=== PATIENT | female | born 1980 | race Caucasian/White ===

== ENCOUNTER 2020-12-04 17:31 | Emergency (ER) | payer OTHER, SELFPAY ==
--- NOTE | 2020-12-04 17:34 | ED.FEMALEGU ---
HPI - Female Genitourinary General Chief complaint: Urogenital-Female Stated complaint: poss UTI Time Seen by Provider: 12/04/20 17:35 Source: patient and RN notes reviewed History of Present Illness HPI Narrative: Patient is a 40-year-old female who presents the urgent care with complaints of a possible UTI. Patient's states that since Wednesday she has had dysuria, frequency, urgency and suprapubic pressure. Patient states she had a little bit of blood in the urine today. Denies of any fever, nausea, vomiting, abdominal pain. Denies of any history of urinary tract infections. Denies of any chance of , patient has an IUD. No other acute complaints. No acute distress noted. Patient has not taken anything [id number] for her symptoms. Patient aware of the plan of care. Some parts of this dictation were generated by voice recognition software and may contain typographical and/or grammatical inaccuracies. Related Data Home Medications Medication Instructions Recorded Confirmed bupropion HCl 300 mg PO DAILY 12/04/20 12/04/20 eluxadoline [Viberzi] 75 mg PO BID 12/04/20 12/04/20 hydroxyzine HCl 10 mg PO DAILY 12/04/20 12/04/20 naltrexone-bupropion [Contrave] 8 tablet PO DAILY 12/04/20 12/04/20 omeprazole 40 mg PO DAILY 12/04/20 12/04/20 pen needle, diabetic [BD 12/04/20 12/04/20 Ultra-Fine Short Pen Needle] Allergies Allergy/AdvReac Type Severity Reaction Status Date / Time No Known Drug Allergies Allergy Unknown Verified 11/23/14 12:38 Review of Systems Review of Systems: Narrative: CONSTITUTIONAL: Denies fever, chills, or sweats. EYES: Denies visual changes, redness, or discharge. ENT: Denies rhinorrhea, congestion, sore throat, or otalgia. CARDIOVASCULAR: Denies chest pain, palpitations, or edema. RESPIRATORY: Denies cough or dyspnea. GASTROINTESTINAL: Denies abdominal pain, nausea, vomiting, or diarrhea. GENITOURINARY: Reports of dysuria, frequency, urgency SKIN: Denies rash or itching. MUSCULOSKELETAL: Denies back pain, joint pain, or myalgia. NEUROLOGIC: Denies headache, numbness, or weakness. All other systems reviewed are negative, except as documented in HPI. PMFSH Social History Social History Gender identity (if verbalized by the patient): Female Comments At the time of my signature, I reviewed and agree with the nursing past medical, surgical, social, and family history. There is no relevant family history pertinent to the patient complaint. Exam Narrative: Exam Narrative: GENERAL: This is a well-nourished, well-developed patient, in no apparent distress. HEAD: normocephalic, atraumatic. EYES: PERRL. Sclera clear/white. Vision is grossly intact. EARS: External ears normal NOSE: External nose normal with no obvious nasal discharge, nares without redness, no rhinorrhea. THROAT: Mucous membranes moist NECK: Neck supple CARDIOVASCULAR: Regular rate and rhythm without murmurs, gallops, or rubs. RESPIRATORY: Clear to auscultation. Breath sounds equal bilaterally. No wheezes, rales, or rhonchi. GASTROINTESTINAL: Abdomen soft, mild suprapubic tenderness, nondistended. SKIN: warm, intact with no suspicious lesions or rash, good texture and turgor. NEURO: awake, alert, and oriented to person, place and time. There were no obvious focal neurologic abnormalities. EXTREMITIES: No clubbing, cyanosis, or edema. BACK: Negative bilateral CVA tenderness Course Vital Signs Vital signs: Vital Signs Temperature 98.4 F 12/04/20 17:37 Pulse Rate 84 12/04/20 17:37 Respiratory Rate 16 12/04/20 17:37 Blood Pressure 154/93 H 12/04/20 17:37 Pulse Oximetry 100 12/04/20 17:37 Temperature 98.4 F 12/04/20 17:48 Pulse Rate 84 12/04/20 17:48 Respiratory Rate 16 12/04/20 17:48 Blood Pressure 154/93 H 12/04/20 17:48 Pulse Oximetry 100 12/04/20 17:48 Reviewed-patient is informed that they may have pre-hypertension or hypertension based on a blood pressure reading in the dep
[2020-12-04 17:37] VITALS: BP 154/93; PULSE 84; RESP 16; TEMP 36.9; O2SAT 100
[2020-12-04 17:48] VITALS: BP 154/93; PULSE 84; RESP 16; TEMP 36.9; O2SAT 100
== END 2020-12-04 18:01 | disposition home or self-care (01) ==
PROVIDERS: Emergency Provider Nurse Practitioner Family
DX: N39.0 Urinary tract infection, site not specified (principal); F41.9 Anxiety disorder, unspecified; F32.9 Major depressive disorder, single episode, unspecified
CPT/HCPCS: 81003; 87077; 87086; 87088; 87186; 99203; G0463